=== PATIENT | male | born 1985 | race Caucasian/White ===

== ENCOUNTER 2021-04-28 11:14 | Emergency (ER) | payer OTHER ==
[~2021-04-28] VITALS: Ht 185.4 cm; Wt 136.4 kg
[2021-04-28 11:28] VITALS: TEMP 97.8
[2021-04-28 13:14] VITALS: BP 125/95; PULSE 70
== END 2021-04-28 13:14 | disposition home or self-care (01) ==
LOC: COL.ER 11:14
DX: R05.9 Cough, unspecified (principal)